=== PATIENT | female | born 1960 | race Caucasian/White ===

== ENCOUNTER 2018-08-03 08:10 | Day surgery (SDC) | payer OTHER ==
[~2018-08-03] VITALS: Ht 154.9 cm; Wt 62.6 kg
[2018-08-03 09:15] LABS: BASOPHILS # (AUTO) 0.1 K/uL (0.00-0.22); EOSINOPHILS # (AUTO) 0.2 K/uL (0-0.4); HEMATOCRIT 43.7 % (36-48); HEMOGLOBIN 14.5 g/dL (12.0-16.0); LYMPHOCYTES # (AUTO) 1.4 K/uL (2.5-16.5); LYMPHOCYTES % (AUTO) 24.4 % (20.5-51.1); MEAN CORPUSCULAR HEMOGLOBIN 31 pg (27-31); MEAN CORPUSCULAR HGB CONC 33 g/dL (33-37); MEAN CORPUSCULAR VOLUME 94.6 fL (80-94); MONOCYTES # (AUTO) 0.4 K/uL (0.8-1.0); MONOCYTES % (AUTO) 6.5 % (1.7-9.3); NEUTROPHILS # (AUTO) 3.7 K/uL (1.8-7.7); NEUTROPHILS % (AUTO) 64.1 % (42.2-75.2); PLATELET COUNT (AUTO) 253 K/uL (140-450); RED BLOOD CELL COUNT(AUTO) 4.62 MIL/uL (4.20-5.40); RED CELL DISTRIBUTION WIDTH 13.7 % (11.6-13.7); WHITE BLOOD COUNT (AUTO) 5.7 K/uL (4.8-10.8)
[2018-08-03] MEDS ORDERED: CEFAZOLIN SODIUM 1 GM/D5W PM 50 ML IV SCH (09:30)
[2018-08-03 09:36] LABS: ANION GAP 11.5 (8-16); CARBON DIOXIDE 26.2 mmol/L (21-32); CREATININE 0.9 mg/dL (0.6-1.3); POTASSIUM 3.7 mmol/L (3.5-5.1)
[2018-08-03 09:42] LABS: ALBUMIN 3.5 g/dL (3.4-5.0); TOTAL BILIRUBIN 0.4 mg/dL (0.0-1.0)
[2018-08-03] MEDS ORDERED: LIDOCAINE 2% 100 MG/5 ML UJET TP ONE (10:47)
[2018-08-03] MEDS ORDERED: BUPIVACAINE-MPF/EPI 0.5% 30 ML VIAL INJ ONE ×2 (10:53→11:19)
[2018-08-03] MEDS ORDERED: DEXAMETHASONE 4 MG/ML VIAL ONE (10:57)
[2018-08-03] MEDS ORDERED: KETOROLAC 30 MG/ML VIAL ONE (10:57)
[2018-08-03] MEDS ORDERED: ONDANSETRON 4 MG/2 ML VIAL ONE (10:57)
[2018-08-03] MEDS ORDERED: SEVOFLURANE 250 ML BTL INH ONE (10:57)
[2018-08-03] MEDS ORDERED: PROPOFOL 200 MG/20 ML VIAL IV ONE (10:57)
[2018-08-03] MEDS ORDERED: fentaNYL 0.05 MG/ML VIAL ONE (11:02)
[2018-08-03] MEDS ORDERED: ONDANSETRON 4 MG/2 ML VIAL IVP PRN (11:35)
[2018-08-03] MEDS ORDERED: HYDROmorphone 1 MG/ML AMP IVP PRN ×2 (11:35→12:05)
[2018-08-03] MEDS ORDERED: NACL 0.9% 1,000 ML IV SCH (12:02)
[2018-08-03] MEDS ORDERED: HYDROcodone/APAP 5/325 MG 1 TAB TAB PO PRN (12:05)
[2018-08-03] MEDS ORDERED: MORPHINE SULFATE 4 MG/ML SYR IV PRN (12:05)
[2018-08-03] MEDS ORDERED: ACETAMINOPHEN 325 MG TAB PO PRN (12:05)
[2018-08-03] MEDS ORDERED: MORPHINE SULFATE 2 MG/ML SYR IVP PRN (12:05)
[2018-08-04] MEDS ORDERED: ONDANSETRON 4 MG/2 ML VIAL IVP PRN (12:05)
== END 2018-08-03 14:45 | disposition home or self-care (01) ==
LOC: MDS 08:10 → MMU 08:12 → MDS 14:45
PROVIDERS: ATTEND Surgery
DX: K64.8 Other hemorrhoids (principal); G43.909 Migraine, unspecified, not intractable, without status migrainosus; Z98.51 Tubal ligation status
CPT/HCPCS: 36415; 46260; 71045; 80053; 84702; 85025; 88304; J0690; J1100; J1885; J2405; J2704; J3010; J3490; J7120; Q0092

== ENCOUNTER 2018-08-31 10:54 | Emergency (ER) | payer OTHER ==
[~2018-08-31] VITALS: Ht 154.9 cm; Wt 59.0 kg
[2018-08-31 10:57] VITALS: BP 106/73
--- NOTE | 2018-08-31 11:05 | NUR ---
PT AMBULATES TO BED 3
--- NOTE | 2018-08-31 11:20 | NUR ---
PT BIB SELF TO THE ED WITH THE CHIEF C/O PRESSURE ON S/P HEMORRHOID REPAIR SITE. PER PT HEMORRHOID SURGERY WAS DONE HERE ON July. PT STARTED FEELING PRESSURE SINCE YESTERDAY AND CAME FOR FOLLOW UP. THREAD NOTED ON RECTAL AREA. NO REDNESS OR SWELLING NOTED. DENIES ANY FEVER. DENIES ANY OTHER PROBLEM AT THIS TIME. STATES PAIN OF 5/10 AT THIS TIME. ER MD AWARE.
--- NOTE | 2018-08-31 11:29 | NUR ---
Patient being evaluated by physician at bedside.
--- NOTE | 2018-08-31 12:15 | NUR ---
CHAPPERONED AT BEDSIDE AT THIS TIME
--- NOTE | 2018-08-31 12:15 | NUR ---
DR. MERCER WITH PATIENT AND DR. CORONADO ASSESED ANAL AREA. SUTURES REMAINED INTACT. NO S/S OF INFECTION.
--- NOTE | 2018-08-31 12:25 | NUR ---
Patient discharged with v/s stable. Written and verbal after care instructions given and explained. Patient alert, oriented and verbalized understanding of instructions. Ambulatory with steady gait. All questions addressed prior to discharge. ID band removed. Patient advised to follow up with PMD. Rx of MIRALAX POWDER SOLUTION,NORCO given. Patient educated on indication of medication including possible reaction and side effects. Opportunity to ask questions provided and answered.
--- NOTE | 2018-08-31 12:25 | NUR ---
PER DR. MERCER
--- NOTE | 2018-08-31 12:25 | NUR ---
PATIENT INSTRUCTED TO FOLLOW UP WITH DR. MERCER IN 2WKS. WITH UNDERSTANDING
[2018-08-31 12:36] VITALS: BP 115/73
== END 2018-08-31 12:25 | disposition home or self-care (01) ==
LOC: MED 10:54
DX: Z48.02 Encounter for removal of sutures (principal)
CPT/HCPCS: 99283